=== PATIENT | male | born 1990 | race African-American/Black ===

== ENCOUNTER 2017-05-20 12:42 | Emergency (ER) | payer BC ==
[~2017-05-20] VITALS: Ht 172.7 cm; Wt 71.5 kg
[~2017-05-20 12:42] MED LIST: MOTRIN800 MG PO; NOHOMEMEDS
[2017-05-20 14:12] LABS: HEMATOCRIT 43.8 % (38.0-50.0); HEMOGLOBIN 14.7 G/DL (12.5-16.6); MCH 28.6 PG (29.0-34.0); MCHC 33.6 G/DL (30.0-36.0); MCV 85.2 FL (86-99); PLATELET COUNT 291 K/uL (156-360); RBC DIS.WIDTH-CV 12.3 % (11.8-14.6); RBC DIS.WIDTH-SD 38.1 % (39-53); RED BLOOD COUNT 5.14 M/uL (4.00-5.50)
[2017-05-20 14:20] LABS: CHLORIDE 106 mEq/L (99-109); POTASSIUM 3.9 mEq/L (3.7-5.4); SODIUM 143 mEq/L (136-147)
[2017-05-20 14:22] LABS: GLUCOSE 97 mg/dL (70-99)
[2017-05-20 14:25] LABS: SERUM ETHYL ALCOHOL < 10 mg/dL
[2017-05-20 14:26] LABS: CREATININE 1.2 mg/dL (0.6-1.3); GFR ESTIMATE (CALCULATED) > 59 mL/min/ (58.99-99999)
[2017-05-20 14:27] LABS: UREA NITROGEN (BUN) 9 mg/dL (9-23)
[2017-05-20 16:28] VITALS: BP 127/84
== END 2017-05-20 16:34 | disposition home or self-care (01) ==
LOC: EME 12:42
DX: F41.9 Anxiety disorder, unspecified (principal); F32.9 Major depressive disorder, single episode, unspecified; F43.21 Adjustment disorder with depressed mood; F10.10 Alcohol abuse, uncomplicated; F12.10 Cannabis abuse, uncomplicated; F17.200 Nicotine dependence, unspecified, uncomplicated
CPT/HCPCS: 80048; 85027; 90839; 99281; 99284; G0480

== ENCOUNTER 2017-07-16 19:36 | Emergency (ER) | payer BC ==
[~2017-07-16] VITALS: Ht 175.3 cm; Wt 70.9 kg
[2017-07-16 21:30] LABS: HEMATOCRIT 40.9 % (38.0-50.0); HEMOGLOBIN 13.8 G/DL (12.5-16.6); MCH 28.9 PG (29.0-34.0); MCHC 33.7 G/DL (30.0-36.0); MCV 85.7 FL (86-99); PLATELET COUNT 268 K/uL (156-360); RBC DIS.WIDTH-CV 12.2 % (11.8-14.6); RBC DIS.WIDTH-SD 38.5 % (39-53); RED BLOOD COUNT 4.77 M/uL (4.00-5.50); WHITE BLOOD COUNT 7.9 K/uL (4.1-10.2)
[2017-07-16 21:39] LABS: CHLORIDE 107 mEq/L (99-109); POTASSIUM 3.4 mEq/L (3.7-5.4); SODIUM 143 mEq/L (136-147)
[2017-07-16 21:41] LABS: GLUCOSE 78 mg/dL (70-99)
[2017-07-16 21:45] LABS: GFR ESTIMATE (CALCULATED) > 59 mL/min/ (58.99-99999)
[2017-07-16 21:46] LABS: UREA NITROGEN (BUN) 15 mg/dL (9-23)
[2017-07-16 21:51] LABS: TROP-I INTERPRETATION NEGATIVE; TROPONIN-I < 0.01 ng/mL (0.0-0.30)
[2017-07-16] MEDS ORDERED: CHLORASEPTIC177 ML MM (22:07)
[2017-07-16 22:14] VITALS: BP 164/86
== END 2017-07-16 22:14 | disposition home or self-care (01) ==
LOC: EME 19:36
PROVIDERS: Nurse Practitioner Family
DX: R07.89 Other chest pain (principal); B34.9 Viral infection, unspecified
CPT/HCPCS: 71046; 80048; 84484; 85027; 93005; 99281; 99284